=== PATIENT | female | born 1995 | race Caucasian/White ===

== ENCOUNTER 2024-09-22 19:54 | Observation (INO) | payer BC ==
[2024-09-22 20:53] LABS: BASOPHILS PERCENT AUTO 0.2 % (0.0-1.0); EOSINOPHILS PERCENT AUTO 1.3 % (1.0-3.0); HEMATOCRIT 34.9 % (37.0-47.0); HEMOGLOBIN 10.6 g/dL (12.0-16.0); LYMPHOCYTES PERCENT AUTO 28.2 % (20.5-50.1); MEAN CORPUSCULAR HEMOGLOBIN 26.7 pg (27.0-34.0); MEAN CORPUSCULAR HGB CONC 30.4 g/dL (33.0-35.0); MEAN CORPUSCULAR VOLUME 87.9 fL (80-100); MONOCYTES PERCENT AUTO 7.7 % (2-8); NEUTROPHILS PERCENT AUTO 62.6 % (42.2-75.2); PLATELET COUNT,PLT 251 10^3/uL (150-450); RED BLOOD CELL COUNT 3.97 10^6/uL (4.2-5.4); WHITE BLOOD CELL COUNT,WBC 8.9 10^3/uL (5.0-10.0)
[2024-09-22] MEDS ORDERED: Sodium Chloride 0.9% 10 ML Syringe FLUSH PRN (21:06)
[2024-09-22] MEDS ORDERED: Tranexamic Acid 1,000 MG in Sodium Chloride 0.9% 100 ML IV PRN (21:06)
[2024-09-22] MEDS ORDERED: Acetaminophen 325 MG Tab PO PRN (21:06)
[2024-09-22] MEDS ORDERED: Docusate Sodium 100 MG Cap PO PRN (21:06)
[2024-09-22] MEDS ORDERED: Ondansetron 4 MG Tab.DIS PO PRN (21:06)
[2024-09-22] MEDS: Lactated Ringers 1,000 ML IV SCH (21:27)
[2024-09-22 23:04] LABS: APPEARANCE,URINE CLOUDY (CLEAR); BILIRUBIN,URINE NEGATIVE (NEGATIVE); COLOR,URINE YELLOW (YELLOW); GLUCOSE,URINE NEGATIVE (NEGATIVE); KETONES,URINE NEGATIVE (NEGATIVE); LEUKOCYTE ESTERASE,URINE LARGE (NEGATIVE); NITRITE,URINE NEGATIVE (NEGATIVE); OCCULT BLOOD,URINE NEGATIVE (NEGATIVE); PROTEIN,URINE NEGATIVE (NEGATIVE); UROBILINOGEN,URINE 0.2 mg/dL (0.2-1.0)
[2024-09-22 23:13] LABS: AMORPHOUS SEDIMENT,URINE MODERATE /HPF (NOT SEEN); BACTERIA,URINE MANY /HPF (0-FEW/HPF); EPITHELIAL CELLS,URINE MANY /HPF (NOT SEEN); MUCUS,URINE MODERATE /LPF (NOT SEEN); RBC,URINE 0-5 /HPF (0-5); WBC,URINE 20-30 /HPF (0-5/HPF)
[2024-09-23] MEDS: Sodium Chloride 0.9% 10 ML Syringe FLUSH SCH (10:29)
== END 2024-09-23 09:45 | disposition still patient (30) ==
LOC: DL.OBCHECK 19:54 → DL.OB 21:07
PROVIDERS: ADMIT Family Medicine; ATTEND Family Medicine
DX: O9A.213 Injury, poisoning and certain other consequences of external causes complicating pregnancy, third trimester (principal); Z3A.33 33 weeks gestation of pregnancy; O99.513 Diseases of the respiratory system complicating pregnancy, third trimester; J45.909 Unspecified asthma, uncomplicated; O99.013 Anemia complicating pregnancy, third trimester
CPT/HCPCS: 36415; 59025; 76805; 81001; 85025; 86850; 86900; 86901; 87086; G0378; J7120

== ENCOUNTER 2024-10-31 10:14 | Inpatient (IN) | payer BC ==
[2024-10-31] MEDS: Lactated Ringers 1,000 ML IV SCH (10:40)
[2024-10-31] MEDS ORDERED: Misoprostol 100 MCG Tab RECTAL PRN (10:57)
[2024-10-31] MEDS ORDERED: Acetaminophen/oxyCODONE 325-5 MG Tab PO PRN (10:57)
[2024-10-31] MEDS ORDERED: Carboprost Tromethamine 250 MCG/1 ML Amp IM PRN (10:57)
[2024-10-31] MEDS ORDERED: Ondansetron 4 MG/2 ML SDV IVPUSH PRN (10:57)
[2024-10-31] MEDS ORDERED: Acetaminophen 325 MG Tab PO PRN (10:57)
[2024-10-31] MEDS ORDERED: Tranexamic Acid 1,000 MG in Sodium Chloride 0.9% 100 ML IV PRN (10:57)
[2024-10-31] MEDS ORDERED: Methylergonovine 0.2 MG/1 ML Amp IM PRN (10:57)
[2024-10-31] MEDS ORDERED: Naloxone 2 MG/2 ML Syringe IVPUSH PRN (10:57)
[2024-10-31] MEDS ORDERED: ePHEDrine 50 MG/ML SDV IVPUSH PRN (10:57)
[2024-10-31 11:07] LABS: HEMATOCRIT 36.3 % (37.0-47.0); HEMOGLOBIN 11.4 g/dL (12.0-16.0); MEAN CORPUSCULAR HEMOGLOBIN 26.4 pg (27.0-34.0); MEAN CORPUSCULAR HGB CONC 31.4 g/dL (33.0-35.0); RED BLOOD CELL COUNT 4.32 10^6/uL (4.2-5.4); WHITE BLOOD CELL COUNT,WBC 8.6 10^3/uL (5.0-10.0)
[2024-10-31] MEDS ORDERED: Oxytocin/Normal Saline 30 UNIT/500 ML BAG ONE (11:16)
[2024-10-31] MEDS ORDERED: ceFAZolin 2 GM Vial ONE (11:16)
[2024-10-31] MEDS ORDERED: Lactated Ringers 1,000 ML IV ONE (12:59)
[2024-10-31] MEDS ORDERED: fentaNYL 100 MCG/2 ML SDV EPIDUR ONE (12:59)
[2024-10-31] MEDS ORDERED: Famotidine 20 MG/2 ML SDV IV ONE (12:59)
[2024-10-31] MEDS ORDERED: Ropivacaine 100 ML EPIDUR ONE (12:59)
[2024-10-31] MEDS ORDERED: Dexamethasone 4 MG/ML SDV IV ONE (12:59)
[2024-10-31] MEDS ORDERED: Oxytocin/Normal Saline 30 UNIT/500 ML BAG IV ONE (12:59)
[2024-10-31] MEDS ORDERED: Ketorolac 30 MG/ML SDV IVPUSH ONE (12:59)
[2024-10-31] MEDS ORDERED: Ondansetron 4 MG/2 ML SDV IV ONE (12:59)
[2024-10-31] MEDS: Oxytocin/Normal Saline 30 UNIT/500 ML BAG IV SCH (13:09)
[2024-10-31] MEDS: Simethicone 80 MG Tab.Chew PO SCH (13:30)
[2024-10-31] MEDS: Ketorolac 30 MG/ML SDV IVPUSH ONE (13:50)
[2024-10-31] MEDS: HYDROmorphone 1 MG/ML Syringe ONE (17:10)
[2024-10-31] MEDS: Acetaminophen/oxyCODONE 325-5 MG Tab PO PRN (17:21)
[2024-10-31] MEDS ORDERED: Ketorolac 30 MG/ML SDV IVPUSH SCH (19:00)
[2024-10-31] MEDS: Ketorolac 30 MG/ML SDV IVPUSH SCH (20:30)
[2024-10-31] MEDS: Docusate Sodium 100 MG Cap PO PRN (22:00)
[2024-11-01 06:53] LABS: HEMATOCRIT 28.7 % (37.0-47.0); HEMOGLOBIN 8.6 g/dL (12.0-16.0); MEAN CORPUSCULAR HEMOGLOBIN 25.9 pg (27.0-34.0); MEAN CORPUSCULAR VOLUME 86.4 fL (80-100); RED BLOOD CELL COUNT 3.32 10^6/uL (4.2-5.4); WHITE BLOOD CELL COUNT,WBC 10.8 10^3/uL (5.0-10.0)
[2024-11-01] MEDS: Ferrous Sulfate 325 MG Tab PO SCH (08:27)
[2024-11-01] MEDS: Prenatal Multivitamin with Calcium/Folic Acid/Iron Tab PO SCH (08:27)
[2024-11-01] MEDS ORDERED: HYDROmorphone 1 MG/ML Syringe IV ONE (09:01)
[2024-11-01] MEDS ORDERED: Tranexamic Acid 1,000 MG/10 ML Vial IV ONE (09:01)
[2024-11-01] MEDS ORDERED: Sodium Chloride 0.9% 100 ML IV ONE (09:01)
[2024-11-01] MEDS ORDERED: Oxytocin/Normal Saline 30 UNIT/500 ML BAG IV ONE (09:01)
[2024-11-01] MEDS: Ibuprofen 800 MG Tab PO PRN (17:04)
[2024-11-02] MEDS: Witch Hazel Medicated Pads 100/Jar TOP PRN (09:58)
[2024-11-02] MEDS: Mineral Oil/Petrolatum/Phenylephrine/Shark Liver Oil Oint 57 GM Tube RECTAL PRN (09:58)
== END 2024-11-02 13:00 | disposition home or self-care (01) | DRG 540 ==
LOC: UNDOADMOB 10:14 → DL.OB 10:14 → MERGE 12:00 → INTOOBSV 12:14 → OBSVTOIN 12:14 → DL.OB 11-01 16:36 → DL.MS 11-01 16:36 → UNDODISIN 11-02 13:00
PROVIDERS: ADMIT Family Medicine; ATTEND Family Medicine
PROC: 10D00Z1 Extraction of Products of Conception, Low, Open Approach (ICD-10-PCS; principal; 2024-10-31 11:46)
DX: O34.211 Maternal care for low transverse scar from previous cesarean delivery (principal); Z3A.39 39 weeks gestation of pregnancy; D62 Acute posthemorrhagic anemia; Z37.0 Single live birth; O99.02 Anemia complicating childbirth; Z86.16 Personal history of COVID-19; O32.8XX0 Maternal care for other malpresentation of fetus, not applicable or unspecified; O99.52 Diseases of the respiratory system complicating childbirth; J45.909 Unspecified asthma, uncomplicated
CPT/HCPCS: 01961; 36415; 85027; 86850; 86900; 86901; 94010; A9270-GY; J0690; J1100; J1171; J1885; J2405; J2590; J2795; J3010; J3490; J7120